=== PATIENT | female | born 2000 | race Caucasian/White ===

== ENCOUNTER 2018-06-10 04:44 | Emergency (ER) | payer OTHER ==
[~2018-06-10] VITALS: Ht 160 cm; Wt 57.1 kg
[~2018-06-10 04:44] MED LIST: CRUTCH4 USE; Keflex500 MG PO; MULVITA PO; NEOPOLHCSU OT; Norco 5-325 Ta1 EACH PO; POLY17UD PO; Pyridium200 MG PO; [UNRECOGNIZED DRUG - OTHER]
[2018-06-10] MEDS ORDERED: Verotin-Gr Cap1 EACH PO (05:08)
[2018-06-10 05:46] LABS: Hemoglobin 12.6 g/dL (11.5-16.0); Mean Corpuscular HGB 29.2 pg (26.0-34.0); Mean Corpuscular HGB Conc 32.3 g/dL (31.5-36.5); Mean Corpuscular Volume 90 fL (80-100); Mean Platelet Volume 11.7 fL (9.1-12.4); Platelet Count 114 K/mm3 (150-400); RDW Standard Deviation 46.5 fL (35.1-46.3); Red Blood Cell Count 4.32 M/mm3 (3.80-5.20); White Blood Cell Count 11.38 K/mm3 (4.00-11.30)
== END 2018-06-10 07:00 | disposition home or self-care (01) ==
LOC: ER 04:44
PROVIDERS: Emergency Medicine
DX: O20.0 Threatened abortion (principal); Z3A.11 11 weeks gestation of pregnancy; Z67.11 Type A blood, Rh negative
CPT/HCPCS: 36415; 76801; 84702; 85027; 86900; 86901; 99284-25; J2790

== ENCOUNTER 2018-12-20 18:34 | Inpatient (IN) | payer OTHER ==
[~2018-12-20] VITALS: Ht 160 cm; Wt 69.4 kg
[~2018-12-20 18:34] MED LIST changes: +Verotin-Gr Cap1 EACH PO
[2018-12-20 19:03] LABS: BASOPHILS ABSOLUTE AUTO 0.02 K/mm3 (0.00-0.23); BASOPHILS PERCENT AUTO 0 % (0-2); EOSINOPHILS ABSOLUTE AUTO 0.01 K/mm3 (0.00-0.68); EOSINOPHILS PERCENT AUTO 0 % (0-6); Hematocrit 36.3 % (33.0-51.0); Hemoglobin 12.1 g/dL (11.5-16.0); IMMATURE GRAN ABSOLUTE AUTO 0.08 K/mm3 (0.00-0.10); IMMATURE GRAN PERCENT AUTO 1 % (0-1); LYMPHOCYTES ABSOLUTE AUTO 1.67 K/mm3 (0.84-5.20); LYMPHOCYTES PERCENT AUTO 14 % (21-46); MONOCYTES ABSOLUTE AUTO 0.66 K/mm3 (0.16-1.47); MONOCYTES PERCENT AUTO 6 % (4-13); Mean Corpuscular HGB Conc 33.3 g/dL (31.5-36.5); Mean Corpuscular Volume 93 fL (80-100); Mean Platelet Volume 12.7 fL (9.1-12.4); NEUTROPHILS PERCENT AUTO 79 % (41-73); Platelet Count 126 K/mm3 (150-400); RDW Coefficient Variation 13.3 % (11.7-14.2); RDW Standard Deviation 45.1 fL (35.1-46.3); White Blood Cell Count 11.74 K/mm3 (4.00-11.30)
[2018-12-23 06:32] LABS: BASOPHILS ABSOLUTE AUTO 0.01 K/mm3 (0.00-0.23); BASOPHILS PERCENT AUTO 0 % (0-2); EOSINOPHILS ABSOLUTE AUTO 0.07 K/mm3 (0.00-0.68); EOSINOPHILS PERCENT AUTO 1 % (0-6); Hematocrit 29.5 % (33.0-51.0); Hemoglobin 9.7 g/dL (11.5-16.0); IMMATURE GRAN ABSOLUTE AUTO 0.09 K/mm3 (0.00-0.10); IMMATURE GRAN PERCENT AUTO 1 % (0-1); LYMPHOCYTES ABSOLUTE AUTO 2.24 K/mm3 (0.84-5.20); LYMPHOCYTES PERCENT AUTO 15 % (21-46); MONOCYTES ABSOLUTE AUTO 0.91 K/mm3 (0.16-1.47); MONOCYTES PERCENT AUTO 6 % (4-13); Mean Corpuscular HGB 31.4 pg (26.0-34.0); Mean Corpuscular HGB Conc 32.9 g/dL (31.5-36.5); NEUTROPHILS PERCENT AUTO 78 % (41-73); Platelet Count 88 K/mm3 (150-400); RDW Coefficient Variation 13.5 % (11.7-14.2); RDW Standard Deviation 47.1 fL (35.1-46.3); Red Blood Cell Count 3.09 M/mm3 (3.80-5.20); White Blood Cell Count 15.32 K/mm3 (4.00-11.30)
[2018-12-23 06:38] LABS: Mean Corpuscular Volume 96 fL (80-100); Mean Platelet Volume 12.9 fL (9.1-12.4)
--- NOTE | 2018-12-24 07:18 | NUR ---
TRASH AND SOILED LINEN REMOVED FROM ROOM. FRESH ICE WATER GIVEN.
[2018-12-24] MEDS ORDERED: IBUP800 PO (07:54)
== END 2018-12-24 14:08 | disposition home or self-care (01) | DRG 807 ==
LOC: OBS 18:34 → BC 18:35 → OBS 18:38 → BC 18:39
PROVIDERS: ADMIT Advanced Practice Midwife
PROC: 3E0P7VZ Introduction of Hormone into Female Reproductive, Via Natural or Artificial Opening (ICD-10-PCS; 2018-12-20)
PROC: 10907ZC Drainage of Amniotic Fluid, Therapeutic from Products of Conception, Via Natural or Artificial Opening (ICD-10-PCS; 2018-12-21)
PROC: 3E033VJ Introduction of Other Hormone into Peripheral Vein, Percutaneous Approach (ICD-10-PCS; 2018-12-21)
PROC: 10E0XZZ Delivery of Products of Conception, External Approach (ICD-10-PCS; principal; 2018-12-22)
PROC: 0UQMXZZ Repair Vulva, External Approach (ICD-10-PCS; 2018-12-22)
PROC: 3E0R3BZ Introduction of Anesthetic Agent into Spinal Canal, Percutaneous Approach (ICD-10-PCS; 2018-12-22)
DX: O36.5930 Maternal care for other known or suspected poor fetal growth, third trimester, not applicable or unspecified (principal); Z37.0 Single live birth; Z3A.38 38 weeks gestation of pregnancy; O99.824 Streptococcus B carrier state complicating childbirth; O71.82 Other specified trauma to perineum and vulva
CPT/HCPCS: 36415; 51702; 85025; J0290; J1885; J2590; J3010; J7120

== ENCOUNTER 2021-08-24 15:55 | Inpatient (IN) | payer OTHER ==
[~2021-08-24] VITALS: Ht 160 cm; Wt 65.5 kg
[~2021-08-24 15:55] MED LIST changes: +IBUP800 PO
[2021-08-24 16:39] LABS: BASOPHILS ABSOLUTE AUTO 0.03 K/mm3 (0.00-0.23); BASOPHILS PERCENT AUTO 0 % (0-2); EOSINOPHILS ABSOLUTE AUTO 0.04 K/mm3 (0.00-0.68); EOSINOPHILS PERCENT AUTO 0 % (0-6); Hematocrit 35.7 % (33.0-51.0); Hemoglobin 11.9 g/dL (11.5-16.0); IMMATURE GRAN ABSOLUTE AUTO 0.13 K/mm3 (0.00-0.10); IMMATURE GRAN PERCENT AUTO 1 % (0-1); LYMPHOCYTES ABSOLUTE AUTO 2.21 K/mm3 (0.84-5.20); LYMPHOCYTES PERCENT AUTO 15 % (21-46); MONOCYTES ABSOLUTE AUTO 0.67 K/mm3 (0.16-1.47); MONOCYTES PERCENT AUTO 5 % (4-13); Mean Corpuscular HGB 30.8 pg (26.0-34.0); Mean Corpuscular HGB Conc 33.3 g/dL (31.5-36.5); Mean Corpuscular Volume 93 fL (80-100); NEUTROPHILS ABSOLUTE AUTO 11.49 K/mm3 (1.96-9.15); NEUTROPHILS PERCENT AUTO 79 % (41-73); Platelet Count 98 K/mm3 (150-400); RDW Coefficient Variation 13.1 % (11.7-14.2); RDW Standard Deviation 44.5 fL (35.1-46.3); Red Blood Cell Count 3.86 M/mm3 (3.80-5.20); White Blood Cell Count 14.57 K/mm3 (4.00-11.30)
[2021-08-24 16:41] LABS: Mean Platelet Volume 13.3 fL (9.1-12.4)
[2021-08-24 17:36] LABS: SARS-Cov-2 (COVID-19) PCR, MMC NEGATIVE (NEGATIVE)
--- NOTE | 2021-08-25 09:45 | NUR ---
dr hernandez updated on bleeding adn pad change and then clots with fundal massage after placing cytotec rectally. started weighing pads
--- NOTE | 2021-08-25 10:11 | NUR ---
pad change, second time with clots on pad with fundal massage, will contnue to weigh pads, increased pitocin to 999cc/hr
--- NOTE | 2021-08-25 10:25 | NUR ---
SMALL CLOTS OUT WITH FUNDAL MASSAGE, MORE WAS ON THE PAD FROM LEAKING THAN WITH MASSAGE, WILL CONTNUE TO MONITOR, WILL WEIGHT PAD WITH NEXT FUNDAL MASSAGE
--- NOTE | 2021-08-25 11:41 | NUR ---
CH CALLED AND UPDATED EBL/QBL TOTAL IS 731: PLAN TO CONTNINUE WITH PITOCIN INFUSING VIA IV(CURRENTLY RUNNING) TO GIVE ASECOND DOSE OFMETHERGINEANDTO CONTINUE TO MONTIOR BLEEDING
--- NOTE | 2021-08-25 12:45 | NUR ---
up voided, then to shower, pt tolerated fair to well, got pale in color, but not dizzy or lightheaded, vag bleeding remains scant.
[2021-08-26 05:22] LABS: Hematocrit 30.4 % (33.0-51.0); Mean Corpuscular HGB 30.9 pg (26.0-34.0); Mean Corpuscular HGB Conc 32.9 g/dL (31.5-36.5); Mean Corpuscular Volume 94 fL (80-100); Mean Platelet Volume 12.9 fL (9.1-12.4); Platelet Count 86 K/mm3 (150-400); RDW Coefficient Variation 13.2 % (11.7-14.2); RDW Standard Deviation 45.2 fL (35.1-46.3); Red Blood Cell Count 3.24 M/mm3 (3.80-5.20)
--- NOTE | 2021-08-26 11:38 | NUR ---
DC INSTRUCTIONS GONE OVER WITH PT, VERBALIZED UNDERSTANDING, HAS PPFU FOR TUESDAY AT 0900 DID TALK TO MOM AND REPORTS FEELS SAFE GOING HOME,
== END 2021-08-26 12:32 | disposition home or self-care (01) | DRG 806 ==
LOC: OBS 15:55 → BC 15:57 → OBS 16:02 → BC 16:03
PROVIDERS: ADMIT Nurse Practitioner Obstetrics & Gynecology
PROC: 10E0XZZ Delivery of Products of Conception, External Approach (ICD-10-PCS; principal; 2021-08-25)
PROC: 3E0P7VZ Introduction of Hormone into Female Reproductive, Via Natural or Artificial Opening (ICD-10-PCS; 2021-08-25)
PROC: 10907ZC Drainage of Amniotic Fluid, Therapeutic from Products of Conception, Via Natural or Artificial Opening (ICD-10-PCS; 2021-08-25)
DX: O36.5930 Maternal care for other known or suspected poor fetal growth, third trimester, not applicable or unspecified (principal); O99.324 Drug use complicating childbirth; Z37.0 Single live birth; O48.0 Post-term pregnancy; Z20.822 Contact with and (suspected) exposure to COVID-19; O99.824 Streptococcus B carrier state complicating childbirth; Z3A.40 40 weeks gestation of pregnancy; O99.334 Smoking (tobacco) complicating childbirth; F17.200 Nicotine dependence, unspecified, uncomplicated; F12.90 Cannabis use, unspecified, uncomplicated; Z90.49 Acquired absence of other specified parts of digestive tract; Z67.11 Type A blood, Rh negative; O69.81X0 Labor and delivery complicated by cord around neck, without compression, not applicable or unspecified; O76 Abnormality in fetal heart rate and rhythm complicating labor and delivery; Z28.21 Immunization not carried out because of patient refusal
CPT/HCPCS: 36415; 85025; 85027; 86850; 86900; 86901; A9270; J0290; J1885; J2210; J2405; J2590; J3010; J7120; U0004

== ENCOUNTER 2023-03-02 09:36 | Day surgery (SDC) | payer OTHER ==
[2023-03-02] VITALS (13 sets, daily range): BP systolic 78–133; BP diastolic 45–89
[~2023-03-02] VITALS: Ht 160 cm; Wt 52.4 kg
[~2023-03-02 09:36] MED LIST changes: +MISOPROSTOL PO
--- NOTE | 2023-03-02 09:59 | NUR ---
03/02/23 0959 [address] HISTORY, CHART, MEDICATIONS AND ALLERGIES REVIEWED BEFORE START OF PROCEDURE. PATIENT CONFIRMS NPO STATUS AND AGREES WITH SCHEDULED PROCEDURE. 3-LEAD EKG REVIEWED WITH PHYSICIAN PRIOR TO START OF PROCEDURE. MONITOR INTACT WITH CONTINUOUS PULSE OXIMETRY,CAPNOGRAPHY, 3-LEAD EKG, INTERMITTENT BP. SUPPLEMENTAL O2 TO BE TITRATED THROUGHOUT PROCEDURE TO MAINTAIN O2 SATURATION ABOVE 90%. PATIENT DETERMINED TO BE ASA APPROPRIATE FOR PROPOFOL SEDATION PRIOR TO START OF PROCEDURE BY
--- NOTE | 2023-03-02 10:05 | NUR ---
Ambulatory in Day Surgery. History, Chart, Medications and Allergies reviewed before start of procedure. Lungs clear T/O to Auscultation. Patient confirms NPO status and agrees with scheduled surgery. Pre-Op teaching done. Pt verbalizes understanding. Patient States Post-Procedure ride home has been arranged. PT HAS NOSE RING THAT IS TAPED AND JEWELRY CONSENT SIGNED. DR AND ENDO TEAM AWARE.
--- NOTE | 2023-03-02 11:05 | NUR ---
Discharge instructions reviewed with patient. Patient verbalizes understanding. Copy given to patient to take home. Patient States Post-Procedure ride home has been arranged. Discharged via wheelchair to private car for ride home.
== END 2023-03-02 11:05 | disposition home or self-care (01) ==
LOC: ORSCMMR 09:36 → ORD 10:30 → ORSCMMR 10:30
PROVIDERS: Internal Medicine Gastroenterology
PROC: 0DB98ZX Excision of Duodenum, Via Natural or Artificial Opening Endoscopic, Diagnostic (ICD-10-PCS; principal; 2023-03-02 10:30)
PROC: 0DB68ZX Excision of Stomach, Via Natural or Artificial Opening Endoscopic, Diagnostic (ICD-10-PCS; principal; 2023-03-02 10:30)
DX: R10.13 Epigastric pain (principal); R11.2 Nausea with vomiting, unspecified; F32.A Depression, unspecified; F41.9 Anxiety disorder, unspecified
CPT/HCPCS: 88305; 88342; A9270; J2250; J2704; J7120

== ENCOUNTER 2024-01-05 02:46 | Day surgery (SDC) | payer OTHER ==
[~2024-01-05 02:46] MED LIST changes: +Sod Ferric Gluc Complx/Sucrose 125 MG in NS 100 ML IV SCH
[2024-01-05 15:09] VITALS: BP 117/54
== END 2024-01-05 16:20 | disposition home or self-care (01) ==
LOC: ATC 02:46
DX: D50.9 Iron deficiency anemia, unspecified (principal)
CPT/HCPCS: 96365; J2916

== ENCOUNTER 2024-01-12 02:16 | Day surgery (SDC) | payer OTHER ==
[2024-01-12] MEDS ORDERED: OMEP20ER PO (15:08)
[2024-01-12] MEDS ORDERED: ERGO50000 PO (15:09)
[2024-01-12 15:10] VITALS: BP 111/50
== END 2024-01-12 16:27 | disposition home or self-care (01) ==
LOC: ATC 02:16
DX: D50.9 Iron deficiency anemia, unspecified (principal); D69.6 Thrombocytopenia, unspecified; E55.9 Vitamin D deficiency, unspecified
CPT/HCPCS: 96365; J2916

== ENCOUNTER 2024-01-24 01:02 | Day surgery (SDC) | payer OTHER ==
[~2024-01-24 01:02] MED LIST changes: +ERGO50000 PO; +OMEP20ER PO; -Sod Ferric Gluc Complx/Sucrose 125 MG in NS 100 ML IV SCH
[2024-01-24] MEDS ORDERED: Sod Ferric Gluc Complx/Sucrose 125 MG in NS 100 ML IV SCH (06:00)
[2024-01-24 15:14] VITALS: BP 108/62
== END 2024-01-24 16:29 | disposition home or self-care (01) ==
LOC: ATC 01:02
DX: D50.9 Iron deficiency anemia, unspecified (principal); D69.6 Thrombocytopenia, unspecified; Z87.891 Personal history of nicotine dependence
CPT/HCPCS: 96365; J2916

== ENCOUNTER 2024-02-02 05:03 | Day surgery (SDC) | payer OTHER ==
[2024-02-02] MEDS ORDERED: Sod Ferric Gluc Complx/Sucrose 125 MG in NS 100 ML IV SCH (06:00)
[2024-02-02 15:08] VITALS: BP 103/70
== END 2024-02-02 16:20 | disposition home or self-care (01) ==
LOC: ATC 05:03
DX: D50.9 Iron deficiency anemia, unspecified (principal); D69.6 Thrombocytopenia, unspecified; E55.9 Vitamin D deficiency, unspecified
CPT/HCPCS: 96365; J2916

== ENCOUNTER → 2024-05-28 | Outpatient (CLI) | payer OTHER ==
[2024-05-28 17:29] LABS: BASOPHILS ABSOLUTE AUTO 0.04 K/mm3 (0.00-0.23); BASOPHILS PERCENT AUTO 1 % (0-2); EOSINOPHILS ABSOLUTE AUTO 0.05 K/mm3 (0.00-0.68); EOSINOPHILS PERCENT AUTO 1 % (0-6); Hematocrit 41.8 % (33.0-51.0); Hemoglobin 13.4 g/dL (11.5-16.0); IMMATURE GRAN ABSOLUTE AUTO 0.01 K/mm3 (0.00-0.10); IMMATURE GRAN PERCENT AUTO 0 % (0-1); LYMPHOCYTES ABSOLUTE AUTO 1.77 K/mm3 (0.84-5.20); LYMPHOCYTES PERCENT AUTO 34 % (21-46); MONOCYTES PERCENT AUTO 8 % (4-13); Mean Corpuscular HGB 30.2 pg (26.0-34.0); Mean Corpuscular HGB Conc 32.1 g/dL (31.5-36.5); Mean Corpuscular Volume 94 fL (80-100); Mean Platelet Volume 12.5 fL (9.1-12.4); NEUTROPHILS ABSOLUTE AUTO 2.94 K/mm3 (1.96-9.15); NEUTROPHILS PERCENT AUTO 56 % (41-73); Platelet Count 114 K/mm3 (150-400); RDW Coefficient Variation 13.2 % (11.7-14.2); RDW Standard Deviation 45.1 fL (35.1-46.3); RETICULOCYTE ABSOLUTE 0.0617 M/mm3 (0.0200-0.1100); RETICULOCYTE COUNT PERCENT 1.39 % (0.50-2.50); Red Blood Cell Count 4.44 M/mm3 (3.80-5.20); White Blood Cell Count 5.21 K/mm3 (4.00-11.30)
[2024-05-28 21:03] LABS: Percent Saturation 23.3 % (15.0-50.0)
== END | disposition home or self-care (01) ==
LOC: LAB 14:29 → LAB SHORT 14:29
PROVIDERS: Student in an Organized Health Care Education/Training Program
DX: D50.9 Iron deficiency anemia, unspecified (principal); E55.9 Vitamin D deficiency, unspecified
CPT/HCPCS: 82306; 82728; 83540; 83550; 85025; 85045